=== PATIENT | male | born 1990 | race African-American/Black ===

== ENCOUNTER 2019-01-23 19:33 | Emergency (ER) | payer OTHER ==
[~2019-01-23] VITALS: Ht 195.6 cm; Wt 64.9 kg
[2019-01-23 20:03] VITALS: Ht 195.6 cm; Wt 64.9 kg
[2019-01-23 21:50] VITALS: BP 104/78
== END 2019-01-23 21:50 | disposition home or self-care (01) ==
LOC: ED 19:33
DX: S46.912A Strain of unspecified muscle, fascia and tendon at shoulder and upper arm level, left arm, initial encounter (principal); Z88.1 Allergy status to other antibiotic agents; Z88.6 Allergy status to analgesic agent; W18.30XA Fall on same level, unspecified, initial encounter; Y93.51 Activity, roller skating (inline) and skateboarding; Y92.331 Roller skating rink as the place of occurrence of the external cause; Y99.8 Other external cause status